=== PATIENT | male | born 1950 ===

== ENCOUNTER 2018-05-24 19:41 | Emergency (ER) | payer OTHER, MEDICARE ==
[~2018-05-24] VITALS: Ht 177.8 cm; Wt 103.0 kg
[2018-05-24] MEDS ORDERED: DUONEB INH (20:33)
[2018-05-24] MEDS ORDERED: PROAIR RESPICL90 MCG INH (20:34)
[2018-05-24] MEDS ORDERED: ASPIRIN81 MG PO (20:35)
[2018-05-24] MEDS ORDERED: ABILIFY5 MG PO (20:35)
[2018-05-24] MEDS ORDERED: CLOTRIM ANTIFUN15 GM TOP (20:35)
[2018-05-24] MEDS ORDERED: FOLIC ACID1 MG PO (20:36)
[2018-05-24] MEDS ORDERED: FISH OIL 1,0001 EAC7 PO (20:36)
[2018-05-24] MEDS ORDERED: FLUOXETINE HCL20 MG PO (20:36)
[2018-05-24] MEDS ORDERED: GABAPENTIN300 MG PO (20:37)
[2018-05-24] MEDS ORDERED: GLIPIZIDE5 MG PO (20:37)
[2018-05-24] MEDS ORDERED: LISINOPRIL20 MG PO (20:38)
[2018-05-24] MEDS ORDERED: ISOSORBIDE MONO60 MG PO (20:38)
[2018-05-24] MEDS ORDERED: METFORMIN HCL750 MG PO (20:38)
[2018-05-24] MEDS ORDERED: NITROSTAT0.4 MG SL (20:39)
[2018-05-24] MEDS ORDERED: TOPROL XL100 MG PO (20:39)
[2018-05-24] MEDS ORDERED: CRESTOR40 MG NG (20:40)
[2018-05-24] MEDS ORDERED: OMEPRAZOLE20 MG PO (20:40)
[2018-05-24] MEDS ORDERED: FUROSEMIDE20 MG PO (20:41)
[2018-05-24] MEDS ORDERED: SYMBICORT 16010.2 GM INH (20:41)
[2018-05-24] MEDS ORDERED: SPIRIVA18 MCG INH (20:42)
[2018-05-24] MEDS ORDERED: POTASSIUM CHLO10 MEQ PO (20:42)
== END 2018-05-24 23:02 | disposition home or self-care (01) ==
LOC: ED 19:41
DX: S92.151A Displaced avulsion fracture (chip fracture) of right talus, initial encounter for closed fracture (principal); V43.52XA Car driver injured in collision with other type car in traffic accident, initial encounter; E11.9 Type 2 diabetes mellitus without complications; I25.10 Atherosclerotic heart disease of native coronary artery without angina pectoris; I10 Essential (primary) hypertension; E78.00 Pure hypercholesterolemia, unspecified; I25.2 Old myocardial infarction; Z87.891 Personal history of nicotine dependence; Z79.899 Other long term (current) drug therapy; Z79.82 Long term (current) use of aspirin; Z79.84 Long term (current) use of oral hypoglycemic drugs
CPT/HCPCS: 73610; 99284